=== PATIENT | female | born 1960 | race Caucasian/White ===

== ENCOUNTER 2017-07-07 06:23 | Emergency (ER) | payer BC ==
[2017-07-07] MEDS ORDERED: Ondansetron 4 MG/2 ML SDV IVPUSH ONE ×2 (07:09→07:44)
--- NOTE | 2017-07-07 07:16 | EDM.PDOC ---
ED HPI GENERAL MEDICAL PROBLEM - General Chief Complaint: Gastrointestinal Problem Stated Complaint: DIZZY/NAUSEA Time Seen by Provider: 07/07/17 07:06 - History of Present Illness INITIAL COMMENTS - FREE TEXT/NARRATIVE: 56-year-old female since to the emergency room with nausea vomiting and upper abdominal discomfort. Patient was up around 3:30 this morning and everything was fine she woke up at 5 :30 and had significant nausea and vomiting. She's vomited several times. After the vomiting she developed some epigastric discomfort and has a burning sensation. Prior to this the patient noted some urinary frequency and she had a hard time going she tried some Azo. When she awoke this morning she did take a baby aspirin because heart disease does run in her family however she did not have any associated chest pain chest pressure breathing difficulties or shortness of breath. When the patient was vomiting here in the emergency department was noted she had some bradycardia associated with this this did resolve and did not appear to make symptoms worse. Patient has enjoyed good health she's not taking any medications at this point however she does keep an eye on her blood pressure Abdomen Pain Score (Numeric/FACES): 8 - Related Data Allergies Allergy/AdvReac Type Severity Reaction Status Date / Time No Known Allergies Allergy Verified 07/07/17 06:41 Home Meds: Home Meds Metoclopramide HCl [Reglan] 5 mg PO Q6H PRN #15 tablet 07/07/17 [Rx] Past Medical History - Past Health History Medical/Surgical History: Denies Medical/Surgical History Social & Family History - Family History Family Medical History: Noncontributory - Tobacco Use Smoking Status *Q: Never Smoker Second Hand Smoke Exposure: No - Caffeine Use Caffeine Use: Reports: Soda - Recreational Drug Use Recreational Drug Use: No ED ROS GENERAL - Review of Systems Review Of Systems: See Below Constitutional: Denies: Fever, Chills HEENT: Reports: No Symptoms Respiratory: Reports: No Symptoms Cardiovascular: Reports: No Symptoms GI/Abdominal: Reports: Nausea, Vomiting. Denies: Constipation, Diarrhea : Reports: Frequency Musculoskeletal: Reports: No Symptoms Neurological: Reports: No Symptoms, Other (He has some dizziness associated with vomiting) Psychiatric: Reports: No Symptoms Hematologic/Lymphatic: Reports: No Symptoms Immunologic: Reports: No Symptoms ED EXAM, GI/ABD - Physical Exam Exam: See Below Exam Limited By: No Limitations General Appearance: Alert, Mild Distress (From the nausea) Eyes: Bilateral: Normal Appearance Ears: Normal External Exam, Normal Canal, Hearing Grossly Normal, Normal TMs Nose: Normal Inspection, Normal Mucosa, No Blood Throat/Mouth: Normal Inspection, Normal Lips, Normal Teeth, Normal Gums, Normal Oropharynx, Normal Voice, No Airway Compromise Head: Atraumatic, Normocephalic Neck: Normal Inspection, Supple, Non-Tender, Full Range of Motion. No: Lymphadenopathy (L), Lymphadenopathy (R) Respiratory/Chest: No Respiratory Distress, Lungs Clear, Normal Breath Sounds Cardiovascular: Regular Rate, Rhythm, No Edema, No Murmur GI/Abdominal Exam: Normal Bowel Sounds, Soft, Tender (She has some mild epigastric discomfort). No: Distended, Guarding, Rigid, Rebound Back Exam: Normal Inspection. No: CVA Tenderness (L), CVA Tenderness (R) Extremities: Normal Inspection, No Pedal Edema Neurological: Alert, Oriented, Normal Cognition Skin Exam: Warm, Dry, Intact Course - Vital Signs Last Recorded V/S: Last Vital Signs Temp 36.1 C 07/07/17 06:39 Pulse 75 07/07/17 06:39 Resp 22 H 07/07/17 06:39 BP 157/93 H 07/07/17 06:39 Pulse Ox 99 07/07/17 06:39 - Orders/Labs/Meds Orders: Active Orders 24 hr Category Date Time Status EKG Documentation Completion [RC] STAT Care 07/07/17 07:22 Active Labs: Laboratory Tests 07/07/17 07/07/17 07/07/17 Range/Units 07:15 07:15 08:35 WBC 8.37 (3.98-10.04) K/mm3 RBC 5.07 (3.98-5.22) M/mm3 Hgb 14.3 (11.2-15.7) gm/L Hct 41.0 (34.1-44.9) % MCV 80.9 (79.4-94.8) fl MCH 28.2 (25.6-32.2) pg MCHC 34.9 (32.2-35.5) g/dl RDW Std Deviation 36.7 (36.4-46.3) fL Plt Count 226 (182-369) K/mm3 MPV 9.1 L (9.4-12.3) fl Neutrophils % (Manual) 61 H (40-60) % Band Neutrophils % 0 (0-10) % Lymphocytes % (Manual) 39 (20-40) % Atypical Lymphs % 0 % Monocytes % (Manual) 0 L (2-10) % Eosinophils % (Manual) 0 L (0.7-5.8) % Basophils % (Manual) 0 L (0.1-1.2) Platelet Estimate Adequate RBC Morph Comment Normal Sodium 141 (136-145) mEq/L Potassium 3.6 (3.5-5.1) mEq/L Chloride 103 (98-107) mEq/L Carbon Dioxide 25 (21-32) mEq/L Anion Gap 16.6 H (5-15) BUN 16 (7-18) mg/dL Creatinine 1.0 (0.55-1.02) mg/dL Est Cr Clr Drug Dosing 57.20 mL/min Estimated GFR (MDRD) 58 (>60) mL/min BUN/Creatinine Ratio 16.0 (14-18) Glucose 112 H (74-106) mg/dL Calcium 9.3 (8.5-10.1) mg/dL Total Bilirubin 0.5 (0.2-1.0) mg/dL AST 31 (15-37) U/L ALT 31 (14-59) U/L Alkaline Phosphatase 104 (46-116) U/L Total Protein 7.7 (6.4-8.2) g/dl Albumin 4.1 (3.4-5.0) g/dl Globulin 3.6 gm/dL Albumin/Globulin Ratio 1.1 (1-2) Lipase 181 (73-393) U/L Urine Color Light yellow (Yellow) Urine Appearance Slt cloudy H (Clear) Urine pH 7.5 (5.0-8.0) Ur Specific [place] 1.020 (1.005-1.030) Urine Protein Negative (Negative) Urine Glucose (UA) Negative (Negative) Urine Ketones Negative (Negative) Urine Occult Blood Negative (Negative) Urine Nitrite Negative (Negative) Urine Bilirubin Negative (Negative) Urine Urobilinogen 0.2 (0.2-1.0) Ur Leukocyte Esterase Trace H (Negative) Urine RBC Not seen (0-5) /hpf Urine WBC 0-5 (0-5) /hpf Ur Epithelial Cells 0-5 (0-5) /hpf Amorphous Sediment Many H (NOT SEEN) /hpf Urine Bacteria Few (FEW) /hpf Urine Mucus Not seen (FEW) /hpf Meds: Medications Discontinued Medications Generic Name Dose Route Start Last Admin Trade Name Lorna PRN Reason Stop Dose Admin Lactated Ringer's 1,000 mls @ 999 mls/hr 07/07/17 07:25 07/07/17 07:30 Ringers, Lactated IV 07/07/17 08:25 999 mls/hr .BOLUS ONE Administration Metoclopramide HCl 5 mg 07/07/17 08:33 07/07/17 08:53 Reglan IVPUSH 07/07/17 08:34 5 mg ONETIME ONE Administration Ondansetron HCl 4 mg 07/07/17 07:09 07/07/17 07:15 Zofran IVPUSH 07/07/17 07:10 4 mg ONETIME ONE Administration Ondansetron HCl 4 mg 07/07/17 07:44 07/07/17 07:52 Zofran IVPUSH 07/07/17 07:45 4 mg ONETIME ONE Administration - Re-Assessments/Exams Free Text/Narrative Re-Assessment/Exam: 07/07/17 07:45 Fluids started labs pending patient had some improvement with Zofran but she is still a little nauseated we'll give her a second dose of Zofran. 07/07/17 08:32 It does not appear that the second dose of Zofran helped we'll try a dose of Reglan. 07/07/17 10:12 Patient is doing much better after the Reglan she would like to go home and get some rest. Labs not really suggestive urinalysis probably normal few epithelial cells a few white cells and trace leukocyte esterase more likely mild contamination. Departure - Departure Time of Disposition: 10:13 Disposition: Home, Self-Care 01 Clinical Impression: Gastroenteritis - Discharge Information Prescriptions: Metoclopramide HCl [Reglan] 5 mg PO Q6H PRN #15 tablet PRN Reason: Nausea/Vomiting Referrals: Irma Funes BILLING SERVICES MANAGER [Primary Care Provider] - Forms: ED Department Discharge Additional Instructions: Return to the emergency room with any questions problems worsening symptoms. Clear liquid diet for the next 24 hours then slowly advance as tolerated. Start out with Gatorade as we discussed. Follow-up in the clinic sometime next week for recheck and to recheck your blood pressure area Your given a prescription for Reglan use 1 every 6 hours as needed. This is for nausea and vomiting - My Orders Last 24 Hours: My Active Orders 07/07/17 07:22 EKG Documentation Completion [RC] STAT - Assessment/Plan Last 24 Hours: My Active Orders 07/07/17 07:22 EKG Documentation Completion [RC] STAT
[2017-07-07] MEDS ORDERED: Lactated Ringers 1,000 ML IV ONE (07:25)
[2017-07-07] MEDS ORDERED: Metoclopramide 10 MG/2 ML SDV IVPUSH ONE (08:33)
== END 2017-07-07 10:43 | disposition home or self-care (01) ==
LOC: JD.ED 06:23
DX: K52.9 Noninfective gastroenteritis and colitis, unspecified (principal)
CPT/HCPCS: 36415; 80053; 81001; 83690; 85025; 93005; 96361; 96374; 96375; 96376; 99284; J2405; J2765; J7120; 93010